=== PATIENT | male | born 1955 | race Caucasian/White ===

== ENCOUNTER 2025-03-31 14:32 | Emergency (ER) | payer MEDICARE, OTHER ==
[~2025-03-31] VITALS: Ht 175.3 cm; Wt 98.0 kg
[~2025-03-31 14:32] MED LIST: AMLO-258 PO; AMOX1TAB15 PO; ASPI-1450 PO; ATOR20TA PO; DOCU-385 PO; LOSA-382 PO; PANT-31 PO
[2025-03-31 14:40] VITALS: TEMP 98
[2025-03-31 15:22] LABS: PLATELET COUNT (AUTO) 358 K/uL (150-450); RED BLOOD CELL COUNT(AUTO) 4.68 MIL/uL (4.50-5.90); RED CELL DISTRIBUTION WIDTH 13.3 % (11.5-14.5); WHITE BLOOD COUNT (AUTO) 11.6 K/uL (4.5-11.0)
[2025-03-31 15:26] LABS: CALCIUM, TOTAL 8.8 mg/dL (8.8-10.5); CREATININE 1.17 mg/dL (0.60-1.30); GLOMERULAR FILTR. RATE CALC > 60 mL/min (>60); GLUCOSE,RANDOM 126 mg/dL (70-110); SODIUM SERUM 139 mmol/L (136-145); UREA NITROGEN, BLOOD 17 mg/dL (7-18)
[2025-03-31 15:34] LABS: TROPONIN I-HIGH SENSITIVITY 14 ng/L (<76)
[2025-03-31] MEDS: SODIUM CHLORIDE 0.9% 1,000 ML IV ONE ×2 (15:34)
[2025-03-31] MEDS: PANTOPRAZOLE SODIUM 80 MG in SODIUM CHLORIDE 0.9% 100 ML IV SCH (15:34)
[2025-03-31] MEDS: ONDANSETRON HCL 4 MG/2 ML VIAL IVP ONE (15:35)
[2025-03-31 15:36] LABS: LACTIC ACID 1.0 mmol/L (0.4-2.0)
[2025-03-31 16:12] LABS: APPEARANCE,URINE HAZY (CLEAR); GLUCOSE, URINE (UA) NEGATIVE (NEGATIVE); LEUKOCYTE ESTERASE ,URINE TRACE (NEGATIVE); NITRATE,URINE NEGATIVE (NEGATIVE); OCCULT BLOOD,URINE LARGE (NEGATIVE); SPECIFIC GRAVITIY, URINE 1.019 (1.003-1.030)
[2025-03-31] MEDS ORDERED: IOHEXOL 350 MG/ML 100 ML VIAL ONE (16:29)
[2025-03-31] MEDS: IOHEXOL 9 MG/ML 500 ML BOTTLE PO ONE (16:34)
[2025-03-31 19:01] VITALS: BP 161/101; PULSE 89; RESP 18; O2SAT 94
== END 2025-03-31 20:06 | disposition home or self-care (01) ==
LOC: EMS 14:32
DX: R31.9 Hematuria, unspecified (principal); I10 Essential (primary) hypertension; Z90.49 Acquired absence of other specified parts of digestive tract; Z79.82 Long term (current) use of aspirin; Z79.899 Other long term (current) drug therapy
CPT/HCPCS: 99285; 74177; 96365; 96366; 71045; 96375; 80048; 81001; 83605; 83690; 84484; 85025; 36415; 93005; Q9967 ×2; J2470; J7050